=== PATIENT | female | born 1995 ===

== ENCOUNTER 2018-05-04 10:32 | Emergency (ER) | payer OTHER ==
[~2018-05-04] VITALS: Ht 157.5 cm; Wt 49.9 kg
== END 2018-05-04 14:47 | disposition home or self-care (01) ==
LOC: ER 10:32
DX: B34.9 Viral infection, unspecified (principal)

== ENCOUNTER 2018-07-19 09:28 | Inpatient (IN) | payer OTHER ==
[~2018-07-19] VITALS: Ht 157.5 cm; Wt 56.7 kg
[2018-08-02] MEDS ORDERED: PRENATAL CAPLE1 EAC1 PO (20:57)
[2018-08-02] MEDS ORDERED: FOLIC ACID1 MG PO (20:58)
== END 2018-08-19 13:58 | disposition home or self-care (01) | DRG 807 ==
LOC: LDR 07-25 12:30 → OB/GYN 08-16 23:12 → LDR 08-22 12:30
PROVIDERS: ADMIT Specialist
PROC: 10E0XZZ Delivery of Products of Conception, External Approach (ICD-10-PCS; principal; 2018-08-17)
PROC: 4A0HXFZ Measurement of Products of Conception, Cardiac Rhythm, External Approach (ICD-10-PCS; 2018-08-17)
PROC: 0W8NXZZ Division of Female Perineum, External Approach (ICD-10-PCS; 2018-08-17)
DX: O13.3 Gestational [pregnancy-induced] hypertension without significant proteinuria, third trimester (principal); Z37.0 Single live birth; Z3A.39 39 weeks gestation of pregnancy

== ENCOUNTER 2018-08-02 20:21 | Outpatient (CLI) | payer OTHER ==
[2018-08-02] MEDS ORDERED: PRENATAL CAPLE1 EAC1 PO (20:57)
[2018-08-02] MEDS ORDERED: FOLIC ACID1 MG PO (20:58)
== END 2018-08-03 11:24 | disposition home or self-care (01) ==
LOC: OBS/DEL 20:21
DX: O47.1 False labor at or after 37 completed weeks of gestation (principal); Z34.03 Encounter for supervision of normal first pregnancy, third trimester